=== PATIENT | male | born 1975 | race African-American/Black ===

== ENCOUNTER 2017-10-10 15:07 | Emergency (ER) | payer MEDICAID ==
[~2017-10-10] VITALS: Ht 180.3 cm; Wt 95.0 kg
[2017-10-10] MEDS ORDERED: SODIUM CHLORIDE 0.9% 1,000ML IVBOLUS ONE (15:30)
[2017-10-10] MEDS ORDERED: PLEASE ENTER ALLERGIES MC SCH (15:30)
[2017-10-10] MEDS ORDERED: PLEASE ENTER HEIGHT AND WEIGHT MC SCH (15:30)
[2017-10-10] MEDS ORDERED: SODIUM CHLORIDE FLUSH 10ML SYR IVF ONE (15:30)
[2017-10-10 15:41] VITALS: BP 125/77
[2017-10-10 15:48] LABS: BASOPHILS % (AUTO) 0 % (0-1); EOSINOPHILS % (AUTO) 0 % (1-7); LYMPHOCYTES # (AUTO) 0.79 x10^3/uL (1-3.4); LYMPHOCYTES % (AUTO) 7 % (22-44); MD NO; MEAN CORPUSCULAR HGB CONC 33.1 g/dL (33.2-36.2); MEAN CORPUSCULAR VOLUME 96.7 fL (81-97); MONOCYTES # (AUTO) 0.47 x10^3/uL (0.2-0.8); MONOCYTES % (AUTO) 4 % (2-9); NEUTROPHILS # (AUTO) 10.24 x10^3/uL (1.8-6.8); NEUTROPHILS % (AUTO) 89 % (42-75); PLATELET COUNT 294 x10^3/uL (130-400); RED BLOOD COUNT 4.33 x10^6/uL (4.38-5.82); RED CELL DISTRIBUTION WIDTH 14.3 % (9.4-14.8)
[2017-10-10 15:51] LABS: ALBUMIN 4.3 g/dL (3.4-5.0); ANION GAP 17 mmol/L (5-15); CALCIUM 8.8 mg/dL (8.5-10.1); CHLORIDE 106 mmol/L (98-107); CREATININE 0.94 mg/dL (0.7-1.3)
[2017-10-10] MEDS ORDERED: ONDANSETRON ODT 4 MG ONE (17:05)
[2017-10-10] MEDS ORDERED: ONDANSETRON ODT 4 MG PO ONE (17:30)
== END 2017-10-10 18:30 | disposition home or self-care (01) ==
LOC: ED 17:45
DX: E11.649 Type 2 diabetes mellitus with hypoglycemia without coma (principal); E86.0 Dehydration
CPT/HCPCS: 36415; 80048; 82040; 82962; 85025; 99284; Q0162

== ENCOUNTER 2018-03-07 00:44 | Emergency (ER) | payer MEDICAID ==
[~2018-03-07] VITALS: Ht 180.3 cm; Wt 80.0 kg
[2018-03-07 06:00] VITALS: BP 133/66
== END 2018-03-07 06:05 | disposition home or self-care (01) ==
LOC: ED 05:16
DX: G93.49 Other encephalopathy (principal); I42.6 Alcoholic cardiomyopathy; E11.9 Type 2 diabetes mellitus without complications; Z88.0 Allergy status to penicillin
CPT/HCPCS: 36415; 70450; 80307; 93005; 99285

== ENCOUNTER 2020-06-10 11:15 | Emergency (ER) | payer MEDICAID ==
[~2020-06-10] VITALS: Ht 170.2 cm; Wt 89.9 kg
[2020-06-10 11:51] VITALS: BP 146/65
--- NOTE | 2020-06-10 11:58 | NUR ---
PERIORBITAL DISCOLORATION FOR SEVERAL DAYS, NO FEVER, NO CHILLS, SAYS MOUTH FEELS SORE BUT DENIES ANY MOUTH ISSUES. HX PSYCH, HEP C, HTN, ASHTMA STATES ALL CONTROLLED WITH HIS RX. NO SI/HI. CALM, COOPERATIVE. WAITING FOR ERP EVAL. AIDET PROVIDED.
--- NOTE | 2020-06-10 12:02 | NUR ---
TAKES, Obi GARCIAYPREXHilda, "W[place]"
== END 2020-06-10 12:21 | disposition home or self-care (01) ==
LOC: ED 12:12
DX: B00.1 Herpesviral vesicular dermatitis (principal); E11.9 Type 2 diabetes mellitus without complications; F17.210 Nicotine dependence, cigarettes, uncomplicated
CPT/HCPCS: 99283; 99406

== ENCOUNTER 2020-06-13 08:03 | Emergency (ER) | payer MEDICAID ==
[~2020-06-13] VITALS: Ht 180.3 cm; Wt 86.4 kg
[2020-06-13 08:09] VITALS: BP 127/77
--- NOTE | 2020-06-13 08:17 | NUR ---
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 PT STATES UNABLE TO SEE ANY LETTERS OUT OF LT EYE.
--- NOTE | 2020-06-13 08:46 | NUR ---
EYE DROPS REQUESTED FROM PHARMACY
--- NOTE | 2020-06-13 08:50 | NUR ---
PT TO CT
[2020-06-13] MEDS ORDERED: FLUORESCEIN/BENOXINATE 5 ML DROPS OP ONE (09:00)
--- NOTE | 2020-06-13 09:42 | NUR ---
Patient given discharge instructions and they have confirmed that they understand the instructions. Patient ambulatory with steady gait.
== END 2020-06-13 09:45 | disposition home or self-care (01) ==
LOC: ED 08:33
DX: H53.132 Sudden visual loss, left eye (principal); H53.122 Transient visual loss, left eye; E11.9 Type 2 diabetes mellitus without complications; F17.210 Nicotine dependence, cigarettes, uncomplicated
CPT/HCPCS: 70450; 99284